=== PATIENT | female | born 1955 | race Two or more races ===

== ENCOUNTER 2019-06-24 10:46 | Emergency (ER) | payer OTHER ==
[~2019-06-24] VITALS: Ht 162.6 cm; Wt 103.0 kg
[2019-06-24] MEDS ORDERED: LOTREL 5-10 MG1 CAP PO (10:57)
[2019-06-24] MEDS ORDERED: GLUMETZA500 MG PO (10:58)
[2019-06-24] MEDS ORDERED: SIMVASTATIN10 MG PO (10:58)
== END 2019-06-24 14:30 | disposition home or self-care (01) ==
LOC: ER 10:46
DX: R42 Dizziness and giddiness (principal); I10 Essential (primary) hypertension; E11.9 Type 2 diabetes mellitus without complications

== ENCOUNTER 2022-02-14 12:22 | Outpatient (CLI) | payer OTHER ==
[~2022-02-14 12:22] MED LIST: GLUMETZA500 MG PO; LOTREL 5-10 MG1 CAP PO; SIMVASTATIN10 MG PO
== END 2022-02-14 12:25 | disposition home or self-care (01) ==
LOC: SONOGRAMA 12:22
PROVIDERS: ATTEND Pathology Anatomic Pathology
DX: D34 Benign neoplasm of thyroid gland (principal); E04.9 Nontoxic goiter, unspecified; E04.1 Nontoxic single thyroid nodule